=== PATIENT | male | born 1955 | race Caucasian/White ===

== ENCOUNTER 2019-05-13 12:05 | Emergency (ER) | payer MEDICAID ==
[~2019-05-13] VITALS: Ht 185.4 cm; Wt 120.5 kg
[2019-05-13 13:16] LABS: CLARITY,URINE SLIGHTLY CLOUDY (Clear); COLOR,URINE STRAW (Yellow); GLUCOSE, URINE NEGATIVE (Neg); KETONES,URINE NEGATIVE (Neg); LEUKOCYTE ESTERASE ,URINE NEGATIVE (Neg); NITRITES, URINE NEGATIVE (Neg); OCCULT BLOOD,URINE LARGE (Neg); PH,URINE 6.5 (4.8-8.0); PROTEIN,URINE NEGATIVE (Neg); UROBILINOGEN,URINE 0.2 E.U/dL (0.2-1.0)
[2019-05-13 13:22] LABS: UA COLLECTION TYPE CLN CATCH MIDSTREAM
[2019-05-13 13:26] LABS: RBC,URINE TNTC /HPF (0-2)
[2019-05-13 13:27] LABS: BACTERIA,URINE FEW /HPF (Neg); SQUAMOUS EPITHELIAL CELL,UR FEW /LPF (FEW); WBC,URINE 0-4 /HPF (0-4)
[2019-05-13 15:20] VITALS: BP 136/86
[2019-05-14] MEDS ORDERED: LISI10TA4 PO (22:58)
[2019-05-14] MEDS ORDERED: HYDR-3927 PO (22:58)
[2019-05-14] MEDS ORDERED: FLEC150T PO (22:58)
[2019-05-14] MEDS ORDERED: RIVA20TA PO (22:58)
[2019-05-14] MEDS ORDERED: AMLO5TAB16 PO (22:58)
== END 2019-05-13 15:22 | disposition home or self-care (01) ==
LOC: ER 12:05
DX: N50.3 Cyst of epididymis (principal); N43.3 Hydrocele, unspecified; R31.9 Hematuria, unspecified; I10 Essential (primary) hypertension
CPT/HCPCS: 76870; 81001; 99284

== ENCOUNTER 2019-05-14 22:10 | Observation (INO) | payer MEDICAID ==
[~2019-05-14] VITALS: Ht 185.4 cm; Wt 122.0 kg
[2019-05-14] MEDS ORDERED: ondansetron/PF 4mg/2ml inj IV ONE (22:25)
[2019-05-14] MEDS ORDERED: morphine 4 MG/ML inj SYRINge IV ONE (22:25)
[2019-05-14] MEDS ORDERED: normal saline 1000ml 1,000 ML IV ONE (22:25)
[2019-05-14] MEDS ORDERED: ketorolac trometh. 30mg/ml inj. IV ONE (22:55)
[2019-05-14] MEDS ORDERED: LISI10TA4 PO (22:58)
[2019-05-14] MEDS ORDERED: AMLO5TAB16 PO (22:58)
[2019-05-14] MEDS ORDERED: HYDR-3927 PO (22:58)
[2019-05-14] MEDS ORDERED: RIVA20TA PO (22:58)
[2019-05-14] MEDS ORDERED: FLEC150T PO (22:58)
[2019-05-14 23:48] LABS: CLARITY,URINE CLOUDY (Clear); COLOR,URINE RED (Yellow); GLUCOSE, URINE NEGATIVE (Neg); KETONES,URINE NEGATIVE (Neg); LEUKOCYTE ESTERASE ,URINE NEGATIVE (Neg); NITRITES, URINE NEGATIVE (Neg); OCCULT BLOOD,URINE LARGE (Neg); PROTEIN,URINE TRACE mg/dl (Neg); UROBILINOGEN,URINE 0.2 E.U/dL (0.2-1.0)
[2019-05-14 23:49] LABS: BASOPHILS # (AUTO) 0.1 X10'3 (0-0.2); EOSINOPHILS # (AUTO) 0.3 X10'3 (0-0.9); EOSINOPHILS % (AUTO) 4.4 % (0-6); HEMATOCRIT 42.8 % (42.0-52.0); HEMOGLOBIN 14.9 g/dl (14.0-17.9); LYMPHOCYTES # (AUTO) 2.3 X10'3 (1.1-4.8); LYMPHOCYTES % (AUTO) 40.9 % (21-51); MEAN CORPUSCULAR HEMOGLOBIN 31.2 PG (27.0-31.0); MEAN CORPUSCULAR HGB CONC 34.8 g/dL (33.0-36.5); MEAN CORPUSCULAR VOLUME 89.8 FL (78-98); MEAN PLATELET VOLUME 7.8 FL (7.4-10.4); MONOCYTES # (AUTO) 0.5 X10'3 (0-0.9); MONOCYTES % (AUTO) 8.3 % (2-12); NEUTROPHILS # (AUTO) 2.6 X10'3 (1.8-7.7); NEUTROPHILS % (AUTO) 45.4 % (42-75); PLATELET COUNT 209 X10'3 (140-440); RED BLOOD COUNT 4.76 X10'6 (4.70-6.10); RED CELL DISTRIBUTION WIDTH 13.5 % (11.5-14.5); WHITE BLOOD COUNT 5.7 X10'3 (4.5-11.0)
[2019-05-14 23:50] LABS: ALANINE AMINOTRANSFERASE 22 U/L (12-78); ALBUMIN 3.6 G/DL (3.4-5.0); ALBUMIN/GLOBULIN RATIO 0.9 (1.1-1.5); ALKALINE PHOSPHATASE 75 IU/L (46-116); ANION GAP 11 (8-16); ASPARTATE AMINO TRANSFERASE 13 U/L (10-37); BILIRUBIN,TOTAL 0.7 MG/DL (0.1-1.0); BLOOD UREA NITROGEN 15 MG/DL (7-18); CALCIUM 8.6 MG/DL (8.5-10.1); CHLORIDE 108 MMOL/L (99-107); CREATININE 1.07 MG/DL (0.60-1.10); GLUCOSE 141 MG/DL (70-104); LIPASE 132 U/L (73-393); POTASSIUM 3.4 MMOL/L (3.5-5.1); SODIUM 145 MMOL/L (135-145); TOTAL CARBON DIOXIDE 26.2 MMOL/L (24-32); TOTAL PROTEIN 7.4 G/DL (6.4-8.2); TROPONIN I < 0.04 NG/ML (0.0-0.05); eGFR 70 ML/MIN
[2019-05-14 23:50] LABS: UA COLLECTION TYPE CLN CATCH MIDSTREAM
[2019-05-15] VITALS (16 sets, daily range): BP systolic 100–173; BP diastolic 47–96
[2019-05-15] LABS: BACTERIA,URINE NONE SEEN /HPF (Neg); MUCUS STRANDS FEW /LPF (Neg); RBC,URINE TNTC /HPF (0-2); SQUAMOUS EPITHELIAL CELL,UR NONE SEEN /LPF (FEW); WBC,URINE 0-4 /HPF (0-4)
[2019-05-15] MEDS ORDERED: HYDROcodone/acetaminophen 5mg/325mg tablet PO PRN (00:10)
[2019-05-15] MEDS ORDERED: magnesium hydroxide 30ml (MOM) UD suspension PO PRN (00:10)
[2019-05-15] MEDS ORDERED: potassium CL 10mEq/100ml bag 100 ML IV PRN ×4 (00:10→09:25)
[2019-05-15] MEDS ORDERED: morphine 2 MG/ML inj. syringe IV PRN ×2 (00:10)
[2019-05-15] MEDS ORDERED: ondansetron/PF 4mg/2ml inj IV PRN ×2 (00:10→11:55)
[2019-05-15] MEDS ORDERED: potassium Cl 20 mEq SR tablet PO PRN ×3 (00:10→09:25)
[2019-05-15] MEDS ORDERED: acetaminophen 325mg tablet PO PRN (00:10)
[2019-05-15] MEDS ORDERED: mag hydrox/Alum hydrox/simeth 30ml oral suspension PO PRN (00:10)
[2019-05-15] MEDS ORDERED: magnesium 2GM in 50ml NS 50 ML IV PRN (00:10)
[2019-05-15] MEDS ORDERED: magnesium Cl slow-release 64mg tablet PO PRN (00:10)
[2019-05-15] MEDS ORDERED: magnesium 4gm in 100ml NS 100 ML IV PRN (00:10)
[2019-05-15] MEDS: normal saline 1000ml 1,000 ML IV SCH ×3 (02:28→20:06)
--- NOTE | 2019-05-15 06:39 | NUR ---
Patient in room [facility]. I have received report from Pat RN and had the opportunity to ask questions and assume patient care.
[2019-05-15] MEDS: K and/or MAG REPLACEMENT MC SCH ×3 (08:00→20:00)
[2019-05-15] MEDS: hydrOXYzine 25 MG tablet PO SCH ×2 (09:05→19:55)
[2019-05-15] MEDS: flecainide 50mg tablet PO SCH ×2 (09:05→19:55)
[2019-05-15] MEDS: lisinopril 10 MG tablet PO SCH (09:26)
[2019-05-15] MEDS: potassium Cl 20 mEq SR tablet PO PRN ×3 (09:27→18:07)
[2019-05-15] MEDS: amLODIPine 5mg tablet PO SCH (09:30)
[2019-05-15] MEDS ORDERED: iohexol 300 MG/1 ML 50ml polymer ONE (10:39)
[2019-05-15] MEDS ORDERED: fentaNYL/PF 50MCG/1 ML 2ML syringe ONE (10:54)
[2019-05-15] MEDS ORDERED: midazolam 2 mg/2 ml injection ONE (10:55)
[2019-05-15] MEDS ORDERED: sevoflurane 250ml liquid IH ONE (11:14)
[2019-05-15] MEDS ORDERED: propofol inj 20 ML IV ONE (11:42)
[2019-05-15] MEDS ORDERED: ePHEDrine 50MG/ML INJ. ONE (11:42)
[2019-05-15] MEDS ORDERED: LIDOcaine 2% (20mg/ml) 5ml vial ONE (11:42)
[2019-05-15] MEDS ORDERED: succinylcholine 20mg/ml inj IV ONE (11:42)
[2019-05-15] MEDS ORDERED: glycopyrrolate 0.2mg/ml inj ONE (11:42)
[2019-05-15] MEDS ORDERED: dexamethasone sod phosphate 4mg/ml inj. ONE (11:43)
[2019-05-15] MEDS ORDERED: ondansetron/PF 4mg/2ml inj ONE (11:43)
--- NOTE | 2019-05-15 11:50 | NUR ---
Received from OR via , accompanied by Anesthesiologist DR ANNE and report given by Anesthesiolgist. AWAKEINS TO VOICE. VITALS STABLE. TESFAYE PAIN.
[2019-05-15] MEDS ORDERED: ringers solution, lacted 1,000 ML IV SCH (11:54)
[2019-05-15] MEDS ORDERED: proCHLORperazine 10 MG/2 ml inj IV PRN (11:55)
[2019-05-15] MEDS ORDERED: meperidine/PF 25mg/ml syringe IV PRN ×3 (11:55)
[2019-05-15] MEDS ORDERED: morphine 4 MG/ML inj SYRINge IV PRN ×2 (11:55)
--- NOTE | 2019-05-15 12:30 | NUR ---
Report called to receiving nurse. Transferred via BED Belongings . Special Issues communicated to receiving nurse. AWAKE AND ORIENTED. VITALS STABLE. TESFAYE PAIN. TO SURGICAL [facility] 344A AT TIS TIME.
--- NOTE | 2019-05-15 12:41 | NUR ---
Received pt from recovery room alert and oriented, c/o 5/10 pain. No signs or symptoms of bleeding. v/s 97.5, 70, 16, 143/89, o2sat 96% 2l n/c. Will cont. to monitor.
[2019-05-15] MEDS ORDERED: HYDR-4383 PO (14:15)
--- NOTE | 2019-05-15 19:03 | NUR ---
Patient in room [facility]. I have received report from LAKHWINDER Valero and had the opportunity to ask questions and assume patient care.
--- NOTE | 2019-05-15 19:38 | NUR ---
Patient stable, voiding large amount of reddish urine without difficulty. c/o low abdominal discomfort, pain medication effective. Problems reprioritized. Patient report given, questions answered & plan of care reviewed with Juan KEANE.
[2019-05-16] VITALS: BP 124/78
[2019-05-16 05:34] LABS: ALBUMIN 3.2 G/DL (3.4-5.0); ANION GAP 8 (8-16); BLOOD UREA NITROGEN 11 MG/DL (7-18); BUN/CREATININE RATIO 15.3 (5.4-32.0); CALCIUM 8.4 MG/DL (8.5-10.1); CHLORIDE 107 MMOL/L (99-107); CREATININE 0.72 MG/DL (0.60-1.10); GLUCOSE 131 MG/DL (70-104); POTASSIUM 4.3 MMOL/L (3.5-5.1); SODIUM 139 MMOL/L (135-145); TOTAL CARBON DIOXIDE 24.2 MMOL/L (24-32); eGFR > 90 ML/MIN
[2019-05-16 06:00] VITALS: BP 135/85
[2019-05-16 06:04] LABS: BASOPHILS % (AUTO) 0.1 % (0-1); EOSINOPHILS % (AUTO) 0.1 % (0-6); HEMATOCRIT 42.3 % (42.0-52.0); HEMOGLOBIN 14.6 g/dl (14.0-17.9); LYMPHOCYTES % (AUTO) 12.6 % (21-51); MEAN CORPUSCULAR HEMOGLOBIN 30.9 PG (27.0-31.0); MEAN CORPUSCULAR HGB CONC 34.6 g/dL (33.0-36.5); MEAN CORPUSCULAR VOLUME 89.4 FL (78-98); MONOCYTES # (AUTO) 0.3 X10'3 (0-0.9); MONOCYTES % (AUTO) 3.9 % (2-12); NEUTROPHILS # (AUTO) 6.5 X10'3 (1.8-7.7); NEUTROPHILS % (AUTO) 83.3 % (42-75); PLATELET COUNT 200 X10'3 (140-440); RED BLOOD COUNT 4.73 X10'6 (4.70-6.10); RED CELL DISTRIBUTION WIDTH 13.5 % (11.5-14.5); WHITE BLOOD COUNT 7.8 X10'3 (4.5-11.0)
--- NOTE | 2019-05-16 06:38 | NUR ---
Patient in room [facility]. I have received report from Juan KEANE and had the opportunity to ask questions and assume patient care.
--- NOTE | 2019-05-16 06:38 | NUR ---
Problems reprioritized. Patient report given, questions answered & plan of care reviewed with LAKHWINDER Smith.
[2019-05-16] MEDS: normal saline 1000ml 1,000 ML IV SCH (06:46)
[2019-05-16] MEDS: K and/or MAG REPLACEMENT MC SCH ×2 (06:47)
[2019-05-16] MEDS ORDERED: SULF1TAB49 PO (07:17)
[2019-05-16] MEDS ORDERED: ONDA4TAB6 PO (07:17)
[2019-05-16] MEDS: hydrOXYzine 25 MG tablet PO SCH (07:53)
[2019-05-16] MEDS: amLODIPine 5mg tablet PO SCH (07:53)
[2019-05-16 07:54] VITALS: BP_SYST 135
[2019-05-16] MEDS: lisinopril 10 MG tablet PO SCH (07:54)
[2019-05-16] MEDS: flecainide 50mg tablet PO SCH (07:55)
--- NOTE | 2019-05-19 13:13 | NUR ---
Case Management DC follow up: Spoke to pt & spouse via telephone. Pt stated the Anderson has helped for pain relief r/t kidney stone. Followed up w/Dr Arellano and filling out all necessary documents to take care of the stones. pt understands medications and why he is taking them. No ase noted at this time. All questions have been answered to pt satisfaction at this time
== END 2019-05-16 10:01 | disposition home or self-care (01) ==
LOC: ER 22:10 → ED HOLD 05-15 00:06 → SUR 3N 05-15 01:10
PROVIDERS: ADMIT Hospitalist; ATTEND Hospitalist
DX: N13.2 Hydronephrosis with renal and ureteral calculous obstruction (principal); N17.9 Acute kidney failure, unspecified; I10 Essential (primary) hypertension; G47.30 Sleep apnea, unspecified; R31.0 Gross hematuria; I48.0 Paroxysmal atrial fibrillation; Z79.01 Long term (current) use of anticoagulants; Z79.899 Other long term (current) drug therapy
CPT/HCPCS: 36415; 52332; 74176; 76000; 80048; 80053; 81001; 83605; 83690; 83735; 84484; 85025; 87081; 96374; 96375; 96376; 99284; C1758; C1769; C2617; G0378; J0330; J1100; J1885; J2001; J2250; J2270; J2405; J2704; J3010; J7030; Q9967; Z7610; A4618; J2175; J3490; J7120

== ENCOUNTER 2022-03-07 06:32 | Emergency (ER) | payer MEDICAID ==
[~2022-03-07] VITALS: Ht 185.4 cm; Wt 105.0 kg
[~2022-03-07 06:32] MED LIST: AMLO5TAB16 PO; FLEC150T PO; HYDR-3927 PO; HYDR-4383 PO; LISI10TA27 PO; ONDA4TAB6 PO; RIVA20TA PO
[2022-03-07 07:08] LABS: EOSINOPHILS # (AUTO) 0.3 X10'3 (0-0.9); HEMOGLOBIN 16.3 g/dl (14.0-17.9); LYMPHOCYTES # (AUTO) 1.8 X10'3 (1.1-4.8); MONOCYTES # (AUTO) 0.4 X10'3 (0-0.9); MONOCYTES % (AUTO) 6.5 % (2-12); WHITE BLOOD COUNT 5.4 X10'3 (4.5-11.0)
[2022-03-07 07:12] LABS: BASOPHILS % (AUTO) 0.8 % (0-1); HEMATOCRIT 49.1 % (42.0-52.0); LYMPHOCYTES % (AUTO) 34.1 % (21-51); MEAN CORPUSCULAR HEMOGLOBIN 30.8 PG (27.0-31.0); MEAN CORPUSCULAR HGB CONC 33.2 g/dL (33.0-36.5); MEAN CORPUSCULAR VOLUME 92.8 FL (78-98); MEAN PLATELET VOLUME 7.4 FL (7.4-10.4); NEUTROPHILS # (AUTO) 2.8 X10'3 (1.8-7.7); NEUTROPHILS % (AUTO) 52.6 % (42-75); PLATELET COUNT 221 X10'3 (140-440); RED BLOOD COUNT 5.29 X10'6 (4.70-6.10); RED CELL DISTRIBUTION WIDTH 14.1 % (11.5-14.5)
[2022-03-07 07:28] LABS: ALANINE AMINOTRANSFERASE 25 U/L (12-78); ALBUMIN 3.8 G/DL (3.4-5.0); ALKALINE PHOSPHATASE 67 IU/L (46-116); ANION GAP 8 (8-16); ASPARTATE AMINO TRANSFERASE 25 U/L (10-37); BILIRUBIN,TOTAL 1.5 MG/DL (0.1-1.0); BLOOD UREA NITROGEN 14 MG/DL (7-18); BUN/CREATININE RATIO 15.4 (5.4-32.0); CALCIUM 8.9 MG/DL (8.5-10.1); CHLORIDE 105 MMOL/L (99-107); CREATININE 0.91 MG/DL (0.60-1.10); GLUCOSE 159 MG/DL (70-104); POTASSIUM 4.1 MMOL/L (3.5-5.1); SODIUM 139 MMOL/L (135-145); TOTAL CARBON DIOXIDE 26.5 MMOL/L (24-32); TOTAL PROTEIN 7.8 G/DL (6.4-8.2); eGFR 84 ML/MIN
[2022-03-07 11:10] LABS: CLARITY,URINE CLEAR (Clear); COLOR,URINE YELLOW (Yellow); GLUCOSE, URINE NEGATIVE (Neg); KETONES,URINE NEGATIVE (Neg); LEUKOCYTE ESTERASE ,URINE NEGATIVE (Neg); NITRITES, URINE NEGATIVE (Neg); OCCULT BLOOD,URINE TRACE-INTACT (Neg); PH,URINE 5.5 (4.8-8.0); PROTEIN,URINE TRACE mg/dl (Neg); UROBILINOGEN,URINE 0.2 E.U/dL (0.2-1.0)
[2022-03-07 11:15] LABS: UA COLLECTION TYPE NON-SPECIFIED
[2022-03-07 11:22] LABS: MUCUS STRANDS MODERATE /LPF (Neg); SQUAMOUS EPITHELIAL CELL,UR FEW /LPF (FEW)
[2022-03-07 11:25] LABS: COARSE GRANULAR CAST 0-3 /LPF (NEGATIVE)
[2022-03-07 11:26] LABS: BACTERIA,URINE 1+ /HPF (Neg)
--- NOTE | 2022-03-07 11:50 | NUR ---
Attempted vagal maneuver with a 10ml syringe with no results. He remained in a.fib. Attempted a modified vagal maneuver with a 10ml syringe, lowered head/elevated legs at end of blowing through the syringe. During the modified vagal maneuver he went into a sinus rhythm for 10sec then returned to a. fib.
[2022-03-07] MEDS ORDERED: etomidate 2mg/ml inj. IV ONE (12:10)
[2022-03-07] MEDS ORDERED: fentaNYL/PF 50MCG/1 ML 2ML syringe IV ONE (12:10)
[2022-03-07] MEDS ORDERED: normal saline 1000ml 1,000 ML IV ONE (12:15)
--- NOTE | 2022-03-07 12:45 | NUR ---
Dr. Ching, RT, and Pam RN, at the bedside to cardiovert pt.
--- NOTE | 2022-03-07 12:50 | NUR ---
Pt successfully converted to Sinus Valdo on the compliance monitor. Pt tolerated the procedure.
--- NOTE | 2022-03-07 13:06 | NUR ---
Pt is awake and alert. Denies pain or sob. is at the bedside.
[2022-03-07 13:22] VITALS: BP 135/99
--- NOTE | 2022-03-07 13:40 | NUR ---
Pt and given and understands d/c instructions. IV d/c'd, catheter was intact. Ambulatory with a steady gait.
== END 2022-03-07 13:40 | disposition home or self-care (01) ==
LOC: ER 06:33
DX: I48.91 Unspecified atrial fibrillation (principal); R06.02 Shortness of breath; I10 Essential (primary) hypertension; Z79.899 Other long term (current) drug therapy
CPT/HCPCS: 36415; 71045; 80053; 81001; 83880; 84484; 85025; 87088; 92960; 93005; 96360; 99285; J3010; J3490; J7030

== ENCOUNTER 2023-03-30 09:23 | Emergency (ER) | payer MEDICARE, MEDICAID ==
[~2023-03-30] VITALS: Ht 185.4 cm; Wt 116.4 kg
[2023-03-30 09:43] VITALS: BP 138/93; PULSE 77; RESP 19; TEMP 98; O2SAT 98
[2023-03-30 09:55] LABS: CLARITY,URINE CLOUDY (Clear); COLOR,URINE RED (Yellow)
[2023-03-30 09:57] LABS: UA COLLECTION TYPE CLN CATCH MIDSTREAM
[2023-03-30 10:16] LABS: BACTERIA,URINE FEW /HPF (Neg); RBC,URINE TNTC /HPF (0-2); SQUAMOUS EPITHELIAL CELL,UR NONE SEEN /LPF (FEW)
[2023-03-30 10:43] LABS: BASOPHILS % (AUTO) 0.6 % (0-1); EOSINOPHILS # (AUTO) 0.2 X10'3 (0-0.9); EOSINOPHILS % (AUTO) 5.8 % (0-6); HEMATOCRIT 41.1 % (42.0-52.0); HEMOGLOBIN 14.2 g/dl (14.0-17.9); LYMPHOCYTES # (AUTO) 1.2 X10'3 (1.1-4.8); LYMPHOCYTES % (AUTO) 30.2 % (21-51); MEAN CORPUSCULAR HEMOGLOBIN 30.9 PG (27.0-31.0); MEAN CORPUSCULAR HGB CONC 34.5 g/dL (33.0-36.5); MEAN CORPUSCULAR VOLUME 89.5 FL (78-98); MEAN PLATELET VOLUME 7.8 FL (7.4-10.4); MONOCYTES # (AUTO) 0.2 X10'3 (0-0.9); MONOCYTES % (AUTO) 5.9 % (2-12); NEUTROPHILS # (AUTO) 2.3 X10'3 (1.8-7.7); NEUTROPHILS % (AUTO) 57.5 % (42-75); PLATELET COUNT 193 X10'3 (140-440); RED CELL DISTRIBUTION WIDTH 13.7 % (11.5-14.5)
[2023-03-30 10:46] LABS: INR 1.1 INR
[2023-03-30 10:50] LABS: ALANINE AMINOTRANSFERASE 16 U/L (12-78); ALBUMIN 3.7 G/DL (3.4-5.0); ALKALINE PHOSPHATASE 51 IU/L (46-116); ANION GAP 9 (8-16); ASPARTATE AMINO TRANSFERASE 18 U/L (10-37); BILIRUBIN,TOTAL 1.6 MG/DL (0.1-1.0); BLOOD UREA NITROGEN 9 MG/DL (7-18); CALCIUM 8.8 MG/DL (8.5-10.1); CHLORIDE 106 MMOL/L (99-107); CREATININE 0.69 MG/DL (0.60-1.10); GLUCOSE 119 MG/DL (70-104); POTASSIUM 3.8 MMOL/L (3.5-5.1); SODIUM 140 MMOL/L (135-145); TOTAL CARBON DIOXIDE 24.9 MMOL/L (24-32); TOTAL PROTEIN 7.3 G/DL (6.4-8.2); eCRCL 121 ML/MIN; eGFR > 90 ML/MIN
[2023-03-30] MEDS ORDERED: CEPH-585 PO (11:07)
== END 2023-03-30 12:04 | disposition home or self-care (01) ==
LOC: ER 09:23
DX: R31.9 Hematuria, unspecified (principal); I11.0 Hypertensive heart disease with heart failure; Z79.899 Other long term (current) drug therapy; Z88.8 Allergy status to other drugs, medicaments and biological substances
CPT/HCPCS: 36415; 80053; 81001; 85025; 85610; 87088; 99283

== ENCOUNTER 2023-04-02 14:22 | Emergency (ER) | payer MEDICARE, MEDICAID ==
[~2023-04-02] VITALS: Ht 185.4 cm; Wt 114.0 kg
[~2023-04-02 14:22] MED LIST changes: +CEPH-585 PO
[2023-04-02 14:39] VITALS: TEMP 98.4
[2023-04-02] MEDS ORDERED: iohexol 300mg/ml 100ml inj. ONE (14:49)
[2023-04-02 15:30] LABS: BASOPHILS # (AUTO) 0.1 X10'3 (0-0.2); BASOPHILS % (AUTO) 1.4 % (0-1); EOSINOPHILS # (AUTO) 0.1 X10'3 (0-0.9); EOSINOPHILS % (AUTO) 0.7 % (0-6); HEMOGLOBIN 14.5 g/dl (14.0-17.9); LYMPHOCYTES # (AUTO) 1.1 X10'3 (1.1-4.8); LYMPHOCYTES % (AUTO) 12.7 % (21-51); MEAN CORPUSCULAR HEMOGLOBIN 30.7 PG (27.0-31.0); MEAN CORPUSCULAR HGB CONC 34.5 g/dL (33.0-36.5); MEAN PLATELET VOLUME 8.1 FL (7.4-10.4); MONOCYTES # (AUTO) 0.3 X10'3 (0-0.9); MONOCYTES % (AUTO) 3.2 % (2-12); NEUTROPHILS # (AUTO) 7.2 X10'3 (1.8-7.7); PLATELET COUNT 205 X10'3 (140-440); RED BLOOD COUNT 4.72 X10'6 (4.70-6.10); RED CELL DISTRIBUTION WIDTH 13.5 % (11.5-14.5); WHITE BLOOD COUNT 8.7 X10'3 (4.5-11.0)
[2023-04-02 15:49] LABS: ALANINE AMINOTRANSFERASE 24 U/L (12-78); ALBUMIN/GLOBULIN RATIO 1.1 (1.1-1.5); ALKALINE PHOSPHATASE 58 IU/L (46-116); ANION GAP 7 (8-16); ASPARTATE AMINO TRANSFERASE 22 U/L (10-37); BLOOD UREA NITROGEN 15 MG/DL (7-18); BUN/CREATININE RATIO 16.9 (10.0-20.0); CALCIUM 9.2 MG/DL (8.5-10.1); CHLORIDE 105 MMOL/L (99-107); CREATININE 0.89 MG/DL (0.60-1.10); GLUCOSE 114 MG/DL (70-104); LIPASE 29 U/L (16-77); POTASSIUM 3.7 MMOL/L (3.5-5.1); SODIUM 138 MMOL/L (135-145); TOTAL CARBON DIOXIDE 25.6 MMOL/L (24-32); TOTAL PROTEIN 7.8 G/DL (6.4-8.2); eCRCL 94 ML/MIN; eGFR 86 ML/MIN
[2023-04-02] MEDS ORDERED: morphine 2 MG/ML inj. syringe IV ONE (16:20)
[2023-04-02 16:49] LABS: BILIRUBIN,URINE NEGATIVE (Neg); CLARITY,URINE SLIGHTLY CLOUDY (Clear); COLOR,URINE YELLOW (Yellow); GLUCOSE, URINE NEGATIVE (Neg); KETONES,URINE TRACE mg/dl (Neg); LEUKOCYTE ESTERASE ,URINE NEGATIVE (Neg); NITRITES, URINE NEGATIVE (Neg); OCCULT BLOOD,URINE LARGE (Neg); PH,URINE 5.5 (4.8-8.0); PROTEIN,URINE 30 mg/dl (Neg); UROBILINOGEN,URINE 0.2 E.U/dL (0.2-1.0)
[2023-04-02 16:51] LABS: UA COLLECTION TYPE URINAL
[2023-04-02 17:01] LABS: SQUAMOUS EPITHELIAL CELL,UR MODERATE /LPF (FEW)
[2023-04-02 17:02] LABS: MUCUS STRANDS MODERATE /LPF (Neg); RBC,URINE 20-50 /HPF (0-2)
[2023-04-02 17:03] LABS: BACTERIA,URINE FEW /HPF (Neg); HYALINE CASTS 0-3 /LPF (NEGATIVE); WBC,URINE 0-4 /HPF (0-4)
[2023-04-02] MEDS ORDERED: ONDA4TAB12 PO (17:57)
[2023-04-02] MEDS ORDERED: FLO0.4C PO (17:57)
[2023-04-02] MEDS ORDERED: HYDR-3965 PO (17:57)
[2023-04-02] MEDS ORDERED: morphine 4 MG/ML inj SYRINge IV ONE (18:00)
[2023-04-02 18:12] VITALS: PULSE 73; RESP 16; O2SAT 98
[2023-04-02 18:23] VITALS: BP 144/78
== END 2023-04-02 18:29 | disposition home or self-care (01) ==
LOC: ER 14:22
DX: N20.0 Calculus of kidney (principal); I11.0 Hypertensive heart disease with heart failure; Z79.899 Other long term (current) drug therapy; Z79.1 Long term (current) use of non-steroidal anti-inflammatories (NSAID); Z79.2 Long term (current) use of antibiotics
CPT/HCPCS: 36415; 74177; 80053; 81001; 83690; 85025; 96374; 96376; 99285; J2270; J3490; Q9967

== ENCOUNTER 2023-12-12 14:55 | Emergency (ER) | payer BC, MEDICAID ==
[~2023-12-12] VITALS: Ht 180.3 cm; Wt 91.8 kg
[~2023-12-12 14:55] MED LIST changes: +ONDA-243 PO
[2023-12-12] MEDS: ketorolac trometh. 30mg/ml inj. IM ONE (16:05)
[2023-12-12 16:27] VITALS: BP 128/81; PULSE 71; RESP 17; TEMP 98.5; O2SAT 96
[2023-12-12] MEDS ORDERED: IBUP-1985 PO (17:55)
== END 2023-12-12 16:30 | disposition home or self-care (01) ==
LOC: ER 14:56
DX: M25.561 Pain in right knee (principal); I48.91 Unspecified atrial fibrillation; I10 Essential (primary) hypertension; G47.39 Other sleep apnea; Z79.899 Other long term (current) drug therapy; Z79.2 Long term (current) use of antibiotics; Z79.1 Long term (current) use of non-steroidal anti-inflammatories (NSAID)
CPT/HCPCS: 29505; 73562; 96372; 99284; J1885

== ENCOUNTER 2024-06-21 06:56 | Emergency (ER) | payer BC, MEDICAID ==
[~2024-06-21] VITALS: Ht 185.4 cm; Wt 110.5 kg
[~2024-06-21 06:56] MED LIST changes: -CEPH-585 PO; +IBUP-1985 PO
[2024-06-21] MEDS ORDERED: methylPREDNISolone sod succ/PF 40mg inj. IV STA (07:24)
[2024-06-21] MEDS: methylPREDNISolone sod succ 125mg/2ml vial IV STA (07:37)
[2024-06-21 07:42] LABS: BASOPHILS % (AUTO) 0.8 % (0-1); EOSINOPHILS # (AUTO) 0.5 X10'3 (0-0.9); EOSINOPHILS % (AUTO) 10.2 % (0-6); HEMATOCRIT 42.8 % (42.0-52.0); HEMOGLOBIN 14.9 g/dl (14.0-17.9); LYMPHOCYTES # (AUTO) 0.9 X10'3 (1.1-4.8); LYMPHOCYTES % (AUTO) 19.4 % (21-51); MEAN CORPUSCULAR HEMOGLOBIN 31.7 PG (27.0-31.0); MEAN CORPUSCULAR HGB CONC 34.9 g/dL (33.0-36.5); MEAN CORPUSCULAR VOLUME 90.7 FL (78-98); MEAN PLATELET VOLUME 7.7 FL (7.4-10.4); MONOCYTES # (AUTO) 0.4 X10'3 (0-0.9); MONOCYTES % (AUTO) 8.1 % (2-12); NEUTROPHILS # (AUTO) 2.9 X10'3 (1.8-7.7); NEUTROPHILS % (AUTO) 61.5 % (42-75); PLATELET COUNT 164 X10'3 (140-440); RED BLOOD COUNT 4.72 X10'6 (4.70-6.10); RED CELL DISTRIBUTION WIDTH 13.6 % (11.5-14.5); WHITE BLOOD COUNT 4.7 X10'3 (4.5-11.0)
[2024-06-21] MEDS: ipratropium/albuterol 3ml nebule NEB ONE (07:47)
[2024-06-21 07:49] VITALS: PULSE 69; RESP 16; O2SAT 98
[2024-06-21 07:53] LABS: ALANINE AMINOTRANSFERASE 26 U/L (12-78); ALBUMIN 3.8 G/DL (3.4-5.0); ALBUMIN/GLOBULIN RATIO 0.9 (1.1-1.5); ALKALINE PHOSPHATASE 54 IU/L (46-116); ANION GAP 6 (8-16); ASPARTATE AMINO TRANSFERASE 15 U/L (10-37); BILIRUBIN,TOTAL 1.7 MG/DL (0.1-1.0); BLOOD UREA NITROGEN 12 MG/DL (7-18); BUN/CREATININE RATIO 19.4 (10.0-20.0); CALCIUM 8.7 MG/DL (8.5-10.1); CHLORIDE 107 MMOL/L (99-107); CREATININE 0.62 MG/DL (0.60-1.10); GLUCOSE 97 MG/DL (70-104); SODIUM 141 MMOL/L (135-145); TOTAL PROTEIN 7.9 G/DL (6.4-8.2); eCRCL 132 ML/MIN; eGFR > 90 ML/MIN
[2024-06-21 07:57] VITALS: PULSE 72; RESP 16; O2SAT 99
[2024-06-21 08:01] LABS: PRO BRAIN NATRIURETIC PEPTIDE 85 PG/ML (0-125)
[2024-06-21] MEDS ORDERED: PRED20TA PO (09:24)
[2024-06-21] MEDS ORDERED: ALBU8HFA INH (09:24)
[2024-06-21] MEDS ORDERED: INHA1EAC52 INH (09:25)
[2024-06-21 10:15] VITALS: BP 123/83; PULSE 71; RESP 16; TEMP 98.9; O2SAT 94
== END 2024-06-21 10:23 | disposition home or self-care (01) ==
LOC: ER 06:57
DX: J40 Bronchitis, not specified as acute or chronic (principal); I48.91 Unspecified atrial fibrillation; I10 Essential (primary) hypertension; G47.30 Sleep apnea, unspecified
CPT/HCPCS: 36415; 71045; 80053; 83880; 84484; 85025; 87502; 87503; 93005; 94640; 96374; 99285; J2919; 94760

== ENCOUNTER 2025-04-08 17:30 | Emergency (ER) | payer BC, MEDICAID ==
[~2025-04-08] VITALS: Ht 185.4 cm; Wt 113.2 kg
[~2025-04-08 17:30] MED LIST changes: -IBUP-1985 PO; +IBUP600T52 PO; +INHA1EAC52 INH
[2025-04-08 17:42] VITALS: BP 150/85; PULSE 76; O2SAT 97
--- NOTE | 2025-04-08 17:52 | Physician Documentation ---
History of Present Illness ~ Chief Complaint: Flank Pain Stated Complaint: KIDNEY PAIN Time Seen by MD: 20:08 OK to notify your PCP?: Yes Primary Medical Doctor: DR PETERSEN Source: patient Mode of Arrival: POV Exam Limitations: no limitations HPI Patient is a very pleasant 69-year-old male that presents to the emergency department for evaluation of left lower abdominal pain radiating partially around his side. He has had incidences of 3 other stones that have needed intervention for removal. His last stone was 10 mm and that was last year. He denies having any blood in his urine but he does report that the pain comes in waves and feels exactly like his last kidney stone. And taking Tylenol at home for pain relief. Patient denies fever chills nausea vomiting diarrhea at this time. No other symptoms reported at this time. Medication Reconciliation Allergies: Coded Allergies: No Known Allergies (Unverified , 04/08/25) Scheduled Amlodipine Besylate (Amlodipine Besylate), 1 TAB PO DAILY, (Reported) Flecainide Acetate (Flecainide Acetate), 1 TAB PO Q12H, (Reported) Hydroxyzine Pamoate (Hydroxyzine Pamoate), 1 TAB PO Q12H, (Reported) Ibuprofen (Ibuprofen), 1 TAB PO Q8H Lisinopril (Lisinopril), 1 TAB PO DAILY, (Reported) Rivaroxaban (Xarelto), 1 TAB PO DAILY, (Reported) Scheduled PRN Hydrocodone/Acetaminophen ([place] 5-325 Tablet), 1 TAB PO Q6H PRN for moderate or severe pain ONDANSETRON ODT 4mg tablet (Ondansetron Odt), 1 TAB PO Q6H PRN PRN for nausea/vomiting Ondansetron Hcl (Zofran), 4 MG PO Q6H PRN for nausea/vomiting Durable Medical Equipment Inhaler, Assist Devices (Breatherite Spacer-Adult Mask), EA INH PRN PRN for cough & congestion, (DME) Past Medical History Past Medical History: Atrial Fibrillation, Hypertension, Sleep Apnea Past Surgical History: noncontributory Alcohol Use: None Drug Use: none Lives with: Spouse Lives In: Home Review of Systems ROS As stated above in the HPI, otherwise all systems are reviewed and negative. Physical Exam Vital Signs: RN Vital Signs have been reviewed: Yes, Temperature: 98.4, Source: Temporal, Heart Rate: 76, Respiratory Rate: 16, BP: 150/85, Pulse Oximetry: 97, Weight: 113.200 Oxygen Flow Rate: 0 Pulse Oximetry Reflects: adequate oxygenation Physical Exam VITALS: Reviewed and as above. GENERAL: Alert, no apparent distress. HEENT: Normocephalic, atraumatic, PERRL, EOMI, dry mucosa, no erythema RESPIRATORY: Lungs clear, normal breath sounds, no respiratory distress. CHEST: No accessory muscle use, no retractions CV: Regular rate, rhythm, no edema, no murmur, No: JVD GI: Soft, non-tender, bowels sounds present, no rebound, guarding, or rigidity, mild tenderness noted to the lower left quadrant radiating around the left side. BACK: No CVA tenderness, or swelling MUSCULOSKELETAL No deformities, no edema SKIN: Warm and dry, no rash NEURO: Oriented x4, No motor or sensory deficit PSYCH: Normal mood and affect, no agitation Progress Results/Orders Results/Orders Medications Received in ER Medications (Trade) Dose Ordered Sig/Minesh Route PRN Reason Start Time Stop Time Status Last Admin Dose Admin (Toradol injection) 15 mg ONCE ONCE IM 04/08/25 17:50 04/08/25 17:55 DC 04/08/25 20:01 15 MG Vital Signs 04/08/25 04/08/25 04/08/25 04/08/25 17:42 20:01 20:05 21:04 Temp 98.4 Pulse 76 Resp 16 16 16 15 B/P (MAP) 150/85 Pulse Ox 97 O2 Flow Rate 0 Laboratory Tests Test 04/08/25 17:45 04/08/25 18:43 Urine Specimen Description Cln catch midstream Urine Color Straw Urine Clarity Clear Urine pH 6.0 Urine Specific [place] 1.010 Urine Protein Negative Urine Glucose (UA) Negative Urine Ketones Negative Urine Occult Blood Trace-intact Urine Nitrite Negative Urine Bilirubin Negative Urine Urobilinogen 0.2 Urine Leukocyte Esterase Negative Urine RBC 3-10 Urine WBC 0-4 Urine Squamous Epithelial Cells Few Urine Bacteria None seen Urine Culture Indicated Not ind Volume Urine Centrifuged 10 ml Urine Comment White Blood Count 6.0 Red Blood Count 4.52 L Hemoglobin 14.0 Hematocrit 40.4 L Mean Corpuscular Volume 89.4 Mean Corpuscular Hemoglobin 31.0 Mean Corpuscular Hemoglobin Concent 34.7 Red Cell Distribution Width 13.5 Platelet Count 188 Mean Platelet Volume 7.3 L Neutrophils (%) (Auto) 57.1 Lymphocytes (%) (Auto) 32.3 Monocytes (%) (Auto) 7.0 Eosinophils (%) (Auto) 3.1 Basophils (%) (Auto) 0.5 Neutrophils # (Auto) 3.4 Lymphocytes # (Auto) 1.9 Monocytes # (Auto) 0.4 Eosinophils # (Auto) 0.2 Basophils # (Auto) 0.0 CBC Comment Sodium Level 142 Potassium Level 3.7 Chloride Level 107 Carbon Dioxide Level 27.8 Anion Gap 7 L Blood Urea Nitrogen 18 Creatinine 1.02 Estimated GFR/1.73 m2 73 BUN/Creatinine Ratio 17.6 Glucose Level 149 H Calcium Level 8.4 L Total Bilirubin 1.0 Aspartate Amino Transf (AST/SGOT) 15 Alanine Aminotransferase (ALT/SGPT) 16 Alkaline Phosphatase 57 Total Protein 7.7 Albumin 3.6 Globulin 4.1 Albumin/Globulin Ratio 0.9 L Lipase 36 Chemistry Comments Medical Decision Making Additional information obtaine: other Findings Chief Complaint: Left lower abdominal pain radiating to the flank History of Present Illness: 69-year-old male with history of recurrent nephrolithiasis (three prior episodes requiring intervention, most recent 10 mm stone removed last year) presented with left lower abdominal pain radiating partially around his side. Pain described as intermittent, coming in waves, and subjectively identical to prior kidney stone episodes. Patient denies hematuria, fever, chills, nausea, vomiting, or diarrhea. Has been managing pain with acetaminophen at home. Diagnostic Workup: Given the patient's presentation with flank pain and significant history of recurrent nephrolithiasis, computed tomography of the abdomen and pelvis without intravenous contrast was obtained as the reference standard for evaluating suspected urolithiasis. CT imaging revealed no evidence of renal calculi or hydronephrosis, effectively ruling out stone disease as the etiology of his symptoms. CT imaging instead demonstrated diverticulosis with sigmoid diverticulitis. The diagnosis of diverticulitis was confirmed by CT findings, which has 98-99% sensitivity and specificity for this condition. Laboratory evaluation showed no leukocytosis, and urinalysis was negative for urinary tract infection and hematuria. Medical Decision-Making: The patient's clinical presentation is notable for uncomplicated diverticulitis in the absence of typical systemic features. While approximately 70% of patients with acute diverticulitis present with left lower quadrant pain, the classic triad of left lower quadrant pain, fever, and leukocytosis is present in only 25% of cases. This patient lacks fever (temperature normal), leukocytosis, and signs of complicated disease (no abscess, perforation, or obstruction on CT imaging). Management Plan: Given the patient's presentation with uncomplicated diverticulitis, observation with pain management and dietary modification is appropriate without antibiotic therapy. The [place] [employer] recommends selective rat her than routine use of antibiotics in acute uncomplicated diverticulitis, reserving antibiotics for patients with systemic symptoms (persistent fever, chills), increasing leukocytosis, immunocompromise, age >80 years, , or chronic medical conditions. This patient does not meet criteria for antibiotic therapy as he is immunocompetent, afebrile, without leukocytosis, and lacks other high-risk features. Pain management with acetaminophen is appropriate as the preferred first-line agent for mild to moderate abdominal pain in acute diverticulitis. Acetaminophen is well-tolerated at recommended doses (?4 g/day) and is preferable to NSAIDs, which should be avoided in diverticulitis due to increased risk of diverticular bleeding. Dietary modification with advancement from clear liquids to low-residue diet as tolerated is recommended. Follow-up: Patient instructed to return to the emergency department or seek immediate medical attention for worsening abdominal pain, development of fever, persistent vomiting, inability to tolerate oral intake, or signs of peritonitis. Outpatient follow-up arranged with primary care physician within 5-7 days. Patient counseled that symptoms typically improve within 2-3 days with conservative management. Disposition: Discharge home with acetaminophen for pain control and clear liquid diet instructions with advancement as tolerated. Urinary Diff Dx:Considerations: Include: AAA, Aortic dissection, Appendicitis, Appendicitis train, Bowel obstruction, Bladder outlet obstruc., Cholelithiasis, Choleangitis, Cholecystitis, DJD, Epididymitis, Hepatitis, HNP, Impaction, Musculoskeletal pain, Pancreatitis, Postoperative Comp., Prostatitis, Pyelonephritis, Renal failure, Renal infarction, Strain, Urolithiasis, Urinary Obstruction, Urethritis, Urinary retention, UTI, Other Genital Diff Dx:Considerations: Include: Abscess, Balanitis, Balanoposthitis, Cellulitis, Epididymitis, Entrapment injury, Kera's gangrene, Foreign body, Facture penis, Hydrocele, Inguinal hernia, Post-op Complication, Paraphimosis, Prostatitis, Priapism, Syphilis, Testicular torsion, Torsion-epididymis, Torsion-appendiceal, Urinary retention, Urethritis, Urethritis-chlamydial, Urethritis-gonococcal, UTI, Other Departure Disposition: 01 HOME / SELF CARE / HOMELESS Impression: Primary Impression: Diverticulitis Condition: Stable Discharge Instructions: Diverticulitis, [id number] Additional Instructions: Chief Complaint: Left lower abdominal pain radiating to the flank History of Present Illness: 69-year-old male with history of recurrent nephrolithiasis (three prior episodes requiring intervention, most recent 10 mm stone removed last year) presented with left lower abdominal pain radiating partially around his side. Pain described as intermittent, coming in waves, and subjectively identical to prior kidney stone episodes. Patient denies hematuria, fever, chills, nausea, vomiting, or diarrhea. Has been managing pain with acetaminophen at home. Diagnostic Workup: Given the patient's presentation with flank pain and significant history of recurrent nephrolithiasis, computed tomography of the abdomen and pelvis without intravenous contrast was obtained as the reference standard for evaluating suspected urolithiasis. CT imaging revealed[1][4] no evidence of renal calculi or hydronephrosis, effectively ruling out stone disease as the etiology of his symptoms. CT imaging instead demonstrated diverticulosis with sigmoid diverticulitis. The diagnosis of diverticulitis was confirmed by CT findings, which has 98-99% sensitivity and specificity for this condition. Laboratory evaluation showed no leukocytosis, and urinalysis was negative for urinary tract infection and hematuria. Medical Decision-Making: The patient's clinical presentation is notable for uncomplicated diverticulitis in the absence of typical systemic features. While approximately 70% of patients with acute diverticulitis present with left lower quadrant pain, the classic triad of left lower quadrant pain, fever, and leukocytosis is present in only 25% of cases. This patient lacks fever (temperature normal), leukocytosis, and signs of complicated disease (no abscess, perforation, or obstruction on CT imaging). Management Plan: Given the patient's presentation with uncomplicated diverticulitis, observation with pain management and dietary modification is appropriate without antibiotic therapy. The [place] [employer] recommends selective rather than routine use of antibiotics in acute uncomplicated diverticulitis, reserving antibiotics for patients with systemic symptoms (persistent fever, chills), increasing leukocytosis, immunocompromise, age >80 years, , or chronic medical conditions. This patient does not meet criteria for antibiotic therapy as he is immunocompetent, afebrile, without leukocytosis, and lacks other high-risk features. Pain management with acetaminophen is appropriate as the preferred first-line agent for mild to moderate abdominal pain in acute diverticulitis. Acetaminophen is well-tolerated at recommended doses (?4 g/day) and is preferable to NSAIDs, which should be avoided in diverticulitis due to increased risk of diverticular bleeding. Dietary modification with advancement from clear liquids to low-residue diet as tolerated is recommended. Follow-up: Patient instructed to return to the emergency department or seek immediate medical attention for worsening abdominal pain, development of fever, persistent vomiting, inability to tolerate oral intake, or signs of peritonitis. Outpatient follow-up arranged with primary care physician within 5-7 days. Patient counseled that symptoms typically improve within 2-3 days with conservative management. Disposition: Discharge home with acetaminophen for pain control and clear liquid diet instructions with advancement as tolerated. Referrals: NO PRIMARY CARE PROVIDER (PCP) Prescriptions Cephalexin*Monohydrate* (Keflex*) 500 Mg Capsule 1 CAP PO QID for 7 Days, #28 CAP Prov: CATALINA RONDON 04/08/25 Metronidazole* (Flagyl*) 500 Mg Tablet 1 TAB PO Q12H for 7 Days, #14 TAB Prov: CATALINA RONDON 04/08/25 Education Educated: Patient Educated regarding: diagnosis, treatment, need for follow up Additional Comment Medical Screen Exam This patient recieved a medical screening examination. After reviewing the individual's medical complaints with presenting symptoms and performing an appropriate physical examination, it was determined that no immediate life- threatening emergency medical condition is present. This individual is also not a women having contractions. Signature Scribe Signature: A Attestation: Scribed for Catalina Rondon by CJ Barth . 04/08/25 21:20 NICHELLE MITCHELL Apr 08, 2025 17:51 CATALINA RONDON Apr 08, 2025 21:07
[2025-04-08 18:03] LABS: LEUKOCYTE ESTERASE ,URINE NEGATIVE (Neg); NITRITES, URINE NEGATIVE (Neg); OCCULT BLOOD,URINE TRACE-INTACT (Neg)
[2025-04-08 18:05] LABS: UA COLLECTION TYPE CLN CATCH MIDSTREAM
--- NOTE | 2025-04-08 18:19 | RADIOLOGY REPORT ---
Exam: CT CT ABDOMEN PELVIS History: Flank pain. Rule out kidney stone. Comparison Study: CT CT ABDOMEN PELVIS on DOS: 04/02/23, CT ABDOMEN PELVIS on DOS: 05/14/19 TECHNIQUE: Multidetector CT of the abdomen pelvis without IV contrast. Axial, coronal and sagittal multiplanar reformats were obtained from the axial data set by the technologist. Radiation Dose Information: CT Dose: CTDI volume is 34.27 mGy. Dose-length product is 1848.23 mGy*cm FINDINGS: Bibasilar atelectasis/scarring. Partially visualized heart is unremarkable. Liver, spleen, pancreas and adrenal glands unremarkable. Cholelithiasis without evidence for acute cholecystitis. Mbjl-[id number] nonspecific bilateral perinephric fat stranding. Punctate nonobstructing left renal calculi. 3.2 cm left renal cyst with additional exophytic 1.8 cm left renal cyst . No Hydronephrosis bilaterally. Mild wall thickening of the urinary bladder which may be from inadequate distention. Pr ostate is unremarkable. Stomach is unremarkable. Small bowel loops unremarkable. Appendix is unremarkable. Large amount of fecal material within the ascending colon with small to moderate amount of fecal material within the remainder of the colon. Descending colon and Sigmoid diverticulosis with segmental wall thickening of the sigmoid and perisigmoid fat stranding . No associated extra luminal free air. No formed abscess is noted. No evidence of intraperitoneal free air or free fluid. No evidence of aortic aneurysm. Mild atherosclerotic calcification of the aorta and bilateral iliacs. No significant lymphadenopathy. Trace right-sided hydrocele with Small fat containing right inguinal hernia. Small fat and fluid containing umbilical hernia. Minimal body wall edema. No evidence of acute osseous abnormalities. Multilevel mild to moderate loss of vertebral body height of the lower thoracic spine which appear chronic. Multilevel [id number] degenerative changes of the thoracic and lumbar spine. IMPRESSION: Descending colon and Sigmoid diverticulosis with sigmoid diverticulitis. No associated free air. Mild wall thickening of the Urinary bladder which may be due to inadequate distention. Correlation urinalysis is recommended to exclude cystitis. Additional findings as above.
[2025-04-08 18:25] LABS: SQUAMOUS EPITHELIAL CELL,UR FEW /LPF (FEW)
[2025-04-08 18:54] LABS: MEAN PLATELET VOLUME 7.3 FL (7.4-10.4); RED CELL DISTRIBUTION WIDTH 13.5 % (11.5-14.5)
[2025-04-08 19:08] LABS: CREATININE 1.02 MG/DL (0.60-1.10); TOTAL CARBON DIOXIDE 27.8 MMOL/L (24-32); eCRCL 79 ML/MIN; eGFR 73 ML/MIN
[2025-04-08] MEDS: ketorolac trometh 15mg/ml vial 15 MG/ML ML IM ONE (20:01)
[2025-04-08] MEDS ORDERED: CEPH-585 PO (21:12)
[2025-04-08] MEDS ORDERED: METR-159 PO (21:12)
[2025-04-08 21:23] VITALS: TEMP 98.4
[2025-04-08 21:59] VITALS: RESP 18
[2025-04-08] MEDS: HYDROcodone/acetaminophen 5mg/325mg tablet PO ONE (21:59)
== END 2025-04-08 22:02 | disposition home or self-care (01) ==
LOC: ER 17:30
DX: K57.32 Diverticulitis of large intestine without perforation or abscess without bleeding (principal); I48.91 Unspecified atrial fibrillation; I10 Essential (primary) hypertension; G47.30 Sleep apnea, unspecified; Z87.442 Personal history of urinary calculi; Z79.899 Other long term (current) drug therapy
CPT/HCPCS: 36415; 74176; 80053; 81001; 83690; 85025; 96372; 99285; J1885